=== PATIENT | female | born 1945 | race Two or more races ===

== ENCOUNTER 2017-07-17 15:34 | Emergency (ER) | payer MEDICARE, OTHER ==
[~2017-07-17] VITALS: Ht 157.5 cm; Wt 63.5 kg
[2017-07-17 15:34] VITALS: BP 150/90
[2017-07-17] MEDS ORDERED: Norco 5mg/325mg tab PO ONE (15:45)
--- NOTE | 2017-07-17 16:32 | Diagnostic Imaging Report ---
Indication: Right elbow pain Findings: 3 views of the right elbow were obtained. No acute fracture or malalignment identified. No definite joint effusion is seen. The bones are osteopenic. IMPRESSION: No acute injury appreciated
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
--- NOTE | 2017-07-17 16:33 | Diagnostic Imaging Report ---
Indications: hip pain Findings: Two views of the right hip were obtained. No acute fracture is demonstrated. Alignment of the hip is within normal limits. Soft tissues are unremarkable. Bones are osteopenic. Impression: Negative for acute injury.
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
--- NOTE | 2017-07-17 16:37 | Diagnostic Imaging Report ---
Indication: Back pain Technique: Continuous helical transaxial imaging of the lumbar spine was obtained from the lung bases to the pubic symphysis. No IV contrast was administered. Coronal 2-D reformats were also obtained. Study obtained in a Siemens sensation [address] Total Dose length Product (DLP): 369.[address] Dose Index Volume (CTDIvol): 14.62 mGy Comparison: None Findings: There is no evidence of an acute fracture or malalignment. Height and configuration of the vertebral bodies and intervertebral discs are within normal limits. There are marginal spurs involving the endplates. Mild vacuum phenomena noted within the T12-L1 disc. The facets are hypertrophic. Aorta is mildly calcified. Bones are osteopenic. The facets are unremarkable. There is no soft tissue swelling. Impression: Negative for acute injury. Mild degenerative changes noted. Atherosclerotic disease The CT scanner at [facility] is accredited by the [employer] and the scans are performed using dose optimization techniques as appropriate to a performed exam including Automatic Exposure control.
[2017-07-17] MEDS ORDERED: IBUPROFEN600 MG ORAL (16:56)
[2017-07-17] MEDS ORDERED: NORCO 5-325 TA1 EACH ORAL (16:56)
[2017-07-17 17:17] VITALS: BP 158/79
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
== END 2017-07-17 19:50 | disposition home or self-care (01) ==
LOC: EDBD 15:34 → EMR 16:05
DX: S39.012A Strain of muscle, fascia and tendon of lower back, initial encounter (principal); S76.011A Strain of muscle, fascia and tendon of right hip, initial encounter; S86.911A Strain of unspecified muscle(s) and tendon(s) at lower leg level, right leg, initial encounter; V09.9XXA Pedestrian injured in unspecified transport accident, initial encounter; Y93.01 Activity, walking, marching and hiking; Y92.9 Unspecified place or not applicable; E11.9 Type 2 diabetes mellitus without complications
CPT/HCPCS: 72131; 72170; 99284